=== PATIENT | female | born 1985 | race Two or more races ===

== ENCOUNTER 2023-01-16 13:25 | Emergency (ER) | payer MEDICAID ==
[~2023-01-16] VITALS: Ht 149.9 cm; Wt 62.2 kg
[2023-01-16] MEDS ORDERED: SODIUM CHLORIDE 0.9% 1,000 ML IV ONE (14:00)
[2023-01-16 14:28] VITALS: PULSE 114; RESP 14; O2SAT 98
[2023-01-16 14:39] LABS: Basophils # (auto) 0 10 ^3/uL (0-0.2); Basophils % (auto) 0.6 % (0.0-2.0); Eosinophils # (auto) 0 10 ^3/uL (0-0.8); Eosinophils % (auto) 0.3 % (0.0-7.0); Hemoglobin 14.4 g/dL (12.2-16.2); Lymphocytes # (auto) 1.4 10 ^3/uL (0.4-5.4); Lymphocytes % (auto) 19.4 % (10.0-50.0); Mean Corpuscular Hemoglobin 32.4 pg (28.0-32.0); Mean Corpuscular Hgb Conc. 34.2 g/dL (32.0-36.0); Mean Corpuscular Volume 94.6 fL (80.0-100.0); Monocytes # (auto) 0.5 10 ^3/uL (0-1.3); Monocytes % (auto) 6.9 % (0.0-12.0); Neutrophils # (auto) 5.4 10 ^3/uL (1.6-8.6); Neutrophils % (auto) 72.8 % (37.0-80.0); Nucleated Red Blood Cells % 0.6 %; Red Blood Cells 4.44 10^6/uL (4.0-5.20); Red Cell Distribution Width 22.3 % (11.8-14.3); White Blood Cell 7.4 10^3/uL (4.4-10.8)
[2023-01-16 14:55] LABS: Alanine Aminotransferase 26 U/L (7-40); Albumin 3.2 g/dL (3.2-4.8); Alkaline Phosphatase 86 U/L (46-116); Anion Gap 8 (5-15); Bilirubin, Total 1.3 mg/dL (0.2-1.0); Blood Urea Nitrogen 27 mg/dL (9-23); Calcium 8.7 mg/dL (8.7-10.4); Carbon Dioxide 35 mmol/L (20-30); Chloride 86 mmol/L (98-107); Glucose 129 mg/dL (74-106); Magnesium 2.1 mg/dL (1.6-2.6); Potassium 3.1 mmol/L (3.5-5.1); Sodium 129 mmol/L (136-145); Total Protein 5.8 g/dL (5.7-8.2)
[2023-01-16 15:06] LABS: Aspartate Aminotransferase 34 U/L (13-40)
[2023-01-16] MEDS ORDERED: PANTOPRAZOLE 40 MG/10 ML VIAL INJ IV ONE (17:30)
[2023-01-16] MEDS ORDERED: ACETAMINOPHEN 325 MG TAB PO ONE (17:30)
[2023-01-16] MEDS ORDERED: SODIUM CHLORIDE 0.9% 1,000 ML IVB ONE (17:30)
[2023-01-16] MEDS ORDERED: ONDANSETRON HCL 4 MG/2 ML VIAL IV ONE (17:30)
[2023-01-16] MEDS ORDERED: POTASSIUM CHL 20MEQ/100ML 100 ML IV ONE (17:45)
[2023-01-16 18:55] LABS: INR 1.08 (0.9-1.15); Prothrombin Time 11.3 sec (9.3-11.8)
[2023-01-16 19:20] VITALS: PULSE 98; RESP 15; O2SAT 97
[2023-01-16 19:27] LABS: Rapid Influenza A Negative (Negative); Rapid Influenza B Negative (Negative)
[2023-01-16 19:30] LABS: COVID19 ANTIGEN SOFIA FIA NEGATIVE (NEGATIVE)
[2023-01-16 19:53] LABS: Lipase 43 U/L (12-53)
[2023-01-16 19:54] LABS: Blood Alcohol < 3.0 mg/dL (<10)
[2023-01-16 23:13] VITALS: BP 108/61; PULSE 98; RESP 17; TEMP 97.5; O2SAT 95
== END 2023-01-16 23:58 | disposition home or self-care (01) ==
LOC: ER 13:25
DX: R53.1 Weakness (principal); R10.2 Pelvic and perineal pain; R11.2 Nausea with vomiting, unspecified; R51.9 Headache, unspecified; R07.89 Other chest pain; Z88.0 Allergy status to penicillin; Z88.5 Allergy status to narcotic agent; Z90.89 Acquired absence of other organs; Z20.822 Contact with and (suspected) exposure to COVID-19
CPT/HCPCS: 36415; 70450; 71045; 80053; 80320; 83605; 83690; 83735; 84484; 84702; 85025; 85610; 85730; 87040; 87426; 87804; 93005; 96360; 96361; 99285; J3480; J7030